=== PATIENT | female | born 1965 | race Caucasian/White ===

== ENCOUNTER 2023-04-22 10:26 | Emergency (ER) | payer MEDICAID, OTHER ==
[~2023-04-22] VITALS: Ht 165.1 cm; Wt 119.8 kg
[2023-04-22 10:35] VITALS: BP 125/66; PULSE 101; RESP 19; TEMP 97.8; O2SAT 97
[2023-04-22] MEDS ORDERED: NIRM1TAB PO (12:10)
[2023-04-22] MEDS ORDERED: ALBU0.0912 INH (12:10)
[2023-04-22] MEDS ORDERED: PROM118S5 PO (12:10)
[2023-04-22] MEDS ORDERED: ACET-10509 PO (12:10)
[2023-04-23] MEDS ORDERED: PROM118S5 PO (13:03)
[2023-04-23] MEDS ORDERED: ALBU0.0912 INH (13:03)
[2023-04-23] MEDS ORDERED: NIRM1TAB PO (13:03)
[2023-04-23] MEDS ORDERED: ACET-10509 PO (13:03)
== END 2023-04-22 13:33 | disposition home or self-care (01) ==
LOC: MED 10:26
DX: U07.1 COVID-19 (principal); Z79.899 Other long term (current) drug therapy
CPT/HCPCS: 71045; 99283